=== PATIENT | male | born 1980 | race Caucasian/White ===

== ENCOUNTER → 2020-06-30 | Outpatient (CLI) | payer OTHER ==
--- NOTE | 2020-06-30 16:01 | NM ---
EXAMINATION TYPE: NM hepatobiliary w CCK DATE OF EXAM: 06/30/2020 COMPARISON: NONE HISTORY: 40-year-old male R1 0.11, right upper quadrant pain. TECHNIQUE: After the intravenous administration of 5 mCi Tc 99m Mebrofenin hepatobiliary scintigraphy is performed. Immediate images post injection. FINDINGS: There is satisfactory initial accumulation of tracer by the liver. The gallbladder is visualized wit hin 30 minutes. The small bowel activity is noted within 6 minutes. At one hour CCK was administere d, patient was injected with 2.2 mcg of Kinevac, and gallbladder ejection fraction is calculated at 8 8 %, elevated. IMPRESSION: 1. No scintigraphic evidence for acute/chronic cholecystitis or biliary dyskinesia. 2. Increased gallbladder ejection fraction at 88% may be seen in the setting of gallbladder hyperkine sis.
== END | disposition home or self-care (01) ==
LOC: RADNMMAIN 12:59
PROVIDERS: ATTEND Surgery
DX: R10.11 Right upper quadrant pain (principal)
CPT/HCPCS: 78227; A9537; J2805

== ENCOUNTER 2020-07-10 10:10 | Day surgery (SDC) | payer OTHER ==
[2020-07-08 12:25] VITALS: BMI 32.5
[~2020-07-10 10:10] MED LIST: LACTATED RINGERS 1,000 ML IV SCH; LIDOCAINE 1% (10MG/ML) FOR IV START INTRADERMA PRN
[2020-07-10 10:58] VITALS: TEMP 97
[2020-07-10] MEDS ORDERED: LIDOCAINE 1% INJ 10MG/ML (20 ML MDV) ONE (12:16)
[2020-07-10] MEDS ORDERED: fentaNYL (PF) 50 MCG/ML 2 ML AMP ONE (12:16)
[2020-07-10] MEDS ORDERED: PROPOFOL 10 MG/ML 20 ML VIAL IV ONE (12:16)
--- NOTE | 2020-07-10 12:19 | P.GSHP ---
History of Present Illness H&P Date: 07/10/20 Chief Complaint: GERD, colitis Is a 40-year-old male presents today for EGD colonoscopy. He's issues with GERD and colitis. Past Medical History Past Medical History: GERD/Reflux, Hyperlipidemia, Hypertension, Osteoarthritis (OA), Respiratory Disorder Additional Past Medical History / Comment(s): EMPHYSEMA, HAVING STOMACH PAIN AND BLOATING. History of Any Multi-Drug Resistant Organisms: None Reported Past Surgical History: Adenoidectomy, Appendectomy, Tonsillectomy Additional Past Surgical History / Comment(s): EAR TUBES Past Anesthesia/Blood Transfusion Reactions: No Reported Reaction Additional Past Anesthesia/Blood Transfusion Reaction / Comment(s): TOOK LONGER TO WAKE UP Past Psychological History: Anxiety, Depression Smoking Status: Current every day smoker Past Alcohol Use History: Occasional Additional Past Alcohol Use History / Comment(s): SMOKES 1 PPD, STARTED SMOKING AGE 19. DRINKS "CLOSE TO 14 DRINKS/WEEK" Past Drug Use History: Marijuana Additional Drug Use History / Comment(s): OCCASIONAL MARIJUANA USE - Past Family History Mother Family Medical History: Cancer Additional Family Medical History / Comment(s): BREAST & BONE CANCER Father Family Medical History: Cancer Additional Family Medical History / Comment(s): THROAT CANCER Sister(s) Family Medical History: Cancer Additional Family Medical History / Comment(s): UNKNOWN TYPE OF CANCER Medications and Allergies Home Medications Medication Instructions Recorded Confirmed Type Atorvastatin [Lipitor] 40 mg PO HS 07/08/20 07/08/20 History Bismuth Subsalicylate 0 mg PO ONCE 07/08/20 07/08/20 History [Pepto-Bismol] Escitalopram [Lexapro] 10 mg PO HS 07/08/20 07/08/20 History Losartan [Cozaar] 25 mg PO HS 07/08/20 07/08/20 History Omeprazole 20 mg PO BID 07/08/20 07/08/20 History Allergies Allergy/AdvReac Type Severity Reaction Status Date / Time No Known Allergies Allergy Verified 07/08/20 12:03 Surgical - Exam Vital Signs Temp Pulse Resp BP Pulse Ox 97 F L 68 20 151/88 97 07/10/20 10:56 07/10/20 10:56 07/10/20 10:56 07/10/20 10:56 07/10/20 10:56 - General well developed, well nourished, no distress - Eyes PERRL - ENT normal pinna - Neck no masses - Respiratory normal expansion - Cardiovascular Rhythm: regular - Abdomen Abdomen: soft, non tender Assessment and Plan Assessment: GERD, colitis. We'll perform EGD and colonoscopy
--- NOTE | 2020-07-10 12:40 | P.OP ---
Date of Procedure: 07/10/20 Preoperative Diagnosis: GERD Colitis Postoperative Diagnosis: Antral gastritis Mild esophagitis Normal colon Procedure(s) Performed: EGD Colonoscopy Anesthesia: MAC Surgeon: Kt Ortega Pathology: other (Antrum, esophagus) Condition: stable Disposition: PACU Description of Procedure: Patient's placed on the endoscopy table in the lateral position. He received IV sedation. Digital rectal exam was performed which revealed no abnormalities. The flexible colonoscope was then placed patient anus and passed throughout the entire colon. The ileocecal valve lesions. The cecum, ascending and transverse colon appeared normal. The descending and sigmoid colon appeared normal. Air was no unsteady inflation. The scope was brought back the rectum and this was normal. Scope withdrawn for patient. Next the gastroscope was placed in the oropharynx passed in the esophagus and stomach. Scope was then placed through the pylorus. The first and second portion of the duodenum appeared normal. Scope was brought back and the antrum was mildly inflamed. Biopsies of 4. The scope was then retroflexed and the remainder some appeared normal. The GE junction was at 40 cm. The distal esophagus appeared minimally inflamed and a biopsies was performed. The proxima l esophagus appeared normal. Scope was withdrawn for patient.
[2020-07-10 13:00] VITALS: RESP 16
[2020-07-10 13:01] VITALS: BP 151/80; PULSE 65
== END 2020-07-10 13:12 | disposition home or self-care (01) ==
LOC: ORWHC2ENDO 10:10
PROVIDERS: ATTEND Surgery
DX: K20.0 Eosinophilic esophagitis (principal); E78.5 Hyperlipidemia, unspecified; I10 Essential (primary) hypertension; M19.90 Unspecified osteoarthritis, unspecified site; J43.9 Emphysema, unspecified; Z90.89 Acquired absence of other organs; Z96.22 Myringotomy tube(s) status; F41.9 Anxiety disorder, unspecified; F32.9 Major depressive disorder, single episode, unspecified; F17.210 Nicotine dependence, cigarettes, uncomplicated; Z80.3 Family history of malignant neoplasm of breast; Z80.8 Family history of malignant neoplasm of other organs or systems; Z80.0 Family history of malignant neoplasm of digestive organs; Z79.899 Other long term (current) drug therapy
CPT/HCPCS: 88305; 45378; 43239; J2001; J3010; J2704